=== PATIENT | male | born 1960 | race Caucasian/White ===

== ENCOUNTER 2017-04-14 13:08 | Inpatient (IN) | payer OTHER ==
[~2017-04-14] VITALS: Ht 180.3 cm; Wt 85.5 kg
[2017-04-14] VITALS (9 sets, daily range): BP systolic 129–174; BP diastolic 77–87; PULSE 71–98; RESP 16–24; TEMP 97.7–99; O2SAT 94–100
[~2017-04-14 13:08] MED LIST: PERC5TAB12 PO; WHEEMIS3
[2017-04-14] MEDS ORDERED: SODIUM CHLOR 0.9% 1000 ML INJ 1,000 ML IV SCH (13:25)
[2017-04-14] MEDS ORDERED: ONDANSETRON HCL 4 MG/2 ML VIAL IVP ONE (13:30)
[2017-04-14] MEDS ORDERED: MORPHINE SULFATE 4 MG/ML INJ IV PUSH ONE ×2 (13:30→16:00)
[2017-04-14] MEDS ORDERED: KETOROLAC TROMETHAMINE 30 MG/ML (IVP) VIAL IVP ONE (13:30)
[2017-04-14] MEDS ORDERED: SODIUM CHLORIDE 0.9% FLUSH 10 ML FLUSH IV FLUSH PRN ×3 (13:30→19:15)
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
[2017-04-14 14:56] LABS: AUTOMATED NEUTROPHIL # 17.9 TH/MM3 (1.8-7.7); BASOPHIL % 0.1 % (0.0-2.0); HEMATOCRIT 43.3 % (39.0-51.0); HEMO FLAGS DIFF FINAL; LYMPH % 4.4 % (9.0-44.0); LYMPHOCYTE # 0.9 TH/MM3 (1.0-4.8); MEAN CELL VOLUME 87.6 FL (80.0-100.0); MEAN CORPUSCULAR HEMOGLOBIN 30.1 PG (27.0-34.0); MEAN CORPUSCULAR HGB CONC 34.4 % (32.0-36.0); MONO % 5.6 % (0.0-8.0); NEUT % 89.9 % (16.0-70.0); PLATELET COUNT 239 TH/MM3 (150-450); RED BLOOD COUNT 4.95 MIL/MM3 (4.50-5.90); RED CELL DISTRIBUTION WIDTH 13.6 % (11.6-17.2); WHITE BLOOD COUNT 19.9 TH/MM3 (4.0-11.0)
[2017-04-14 15:14] LABS: ALT (GPT) 33 U/L (12-78)
[2017-04-14 15:15] LABS: ALKALINE PHOSPHATASE 84 U/L (45-117); TOTAL BILIRUBIN ADULT 0.3 MG/DL (0.2-1.0)
[2017-04-14 15:19] LABS: ANION GAP 9 MEQ/L (5-15); AST (GOT) 32 U/L (15-37); BICARBONATE 24.3 MEQ/L (21.0-32.0); BLOOD UREA NITROGEN 15 MG/DL (7-18); CHLORIDE 102 MEQ/L (98-107); GLOMERULAR FILTRATION RATE 61 ML/MIN (>89); SODIUM (NA) 135 MEQ/L (136-145)
[2017-04-14 15:20] LABS: POTASSIUM 3.9 MEQ/L (3.5-5.1)
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
[2017-04-14] MEDS ORDERED: IOHEXOL 350 MG/ML 10 ML VIAL (for RAD DIAG) IVCONTRAST ONE (17:40)
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
[2017-04-14] MEDS ORDERED: MAGNESIUM HYDROXIDE SUSP 30 ML CUP PO PRN ×2 (18:30→19:15)
[2017-04-14] MEDS ORDERED: HYDROmorphone HCL PF 0.5 MG/0.5 ML SYRINGE IV PUSH PRN (18:30)
[2017-04-14] MEDS ORDERED: LACTULOSE SYRUP 20 GM/30 ML CUP PO PRN (18:30)
[2017-04-14] MEDS ORDERED: HYDROmorphone HCL PF 1 MG/ML VIAL IV PUSH PRN (18:30)
[2017-04-14] MEDS ORDERED: CHLORHEXIDINE GLUCONATE 2 % 1 PACK (2 CLOTHS) TOP PRN (18:30)
[2017-04-14] MEDS ORDERED: BISACODYL 10 MG SUPP RECTAL PRN (18:30)
[2017-04-14] MEDS ORDERED: SENNOSIDES 8.6 MG TAB PO PRN (18:30)
[2017-04-14] MEDS ORDERED: MISCELLANEOUS NURSING INFORMATION XX SCH (18:30)
[2017-04-14] MEDS ORDERED: ONDANSETRON HCL 4 MG/2 ML VIAL IV PUSH PRN (18:30)
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
[2017-04-14] MEDS ORDERED: ALUMINUM/MAGNESIUM/SIMETH 30 ML CUP PO PRN (19:15)
[2017-04-14] MEDS ORDERED: cloNIDine HCL 0.1 MG TAB PO PRN (19:15)
[2017-04-14] MEDS ORDERED: ZOLPIDEM TARTRATE 5 MG TAB PO PRN (19:15)
[2017-04-14] MEDS ORDERED: ACETAMINOPHEN/HYDROcodone 325 MG/10 MG TAB PO PRN (19:15)
[2017-04-14] MEDS ORDERED: ACETAMINOPHEN 325 MG TAB PO PRN (19:15)
[2017-04-14] MEDS ORDERED: CYCLOBENZAPRINE HCL 10 MG TAB PO PRN (19:15)
[2017-04-14] MEDS ORDERED: RESP: ALBUTEROL 2.5 MG/3 ML NEB (PRN) NEB (19:15)
[2017-04-14] MEDS ORDERED: PROMETHAZINE INJ 25 MG/ML VIAL IM PRN (19:15)
[2017-04-14] MEDS: SODIUM CHLORIDE 0.9% FLUSH 10 ML FLUSH IV FLUSH SCH (20:00)
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
[2017-04-14] MEDS ORDERED: DOCUSATE SODIUM 100 MG CAP PO SCH (21:00)
[2017-04-14] MEDS ORDERED: SODIUM CHLORIDE 0.9% FLUSH 10 ML FLUSH IV FLUSH SCH (21:00)
[2017-04-14] MEDS ORDERED: DOCUSATE SODIUM 50 MG/SENNA 8.6 MG TAB PO SCH (21:00)
[2017-04-14] MEDS: ACETAMINOPHEN/HYDROcodone 325 MG/10 MG TAB PO PRN (21:09)
--- NOTE | 2017-04-14 23:22 | EKG ---
Date Performed: 04/14/2017 Time Performed: 22:10:06 PTAGE: 56 years EKG: Sinus rhythm NONSPECIFIC T-WAVE ABNORMALITY BORDERLINE ECG NO PREVIOUS TRACING DOCTOR: Yazan Hunter Interpretating Date/Time 04/14/2017 23:20:57
[2017-04-15] VITALS (12 sets, daily range): BP systolic 116–136; BP diastolic 72–85; PULSE 64–112; RESP 14–17; TEMP 98.4–99; O2SAT 93–98
[2017-04-15] MEDS: ACETAMINOPHEN/HYDROcodone 325 MG/10 MG TAB PO PRN ×2 (03:18→08:51)
[2017-04-15 03:48] LABS: BLOOD, URINE NEG (NEG); COMMENT (UR) CULT NOT INDICATED; CULTURE IF INDICATED CULT NOT INDICATED; GLUCOSE,URINE NEG (NEG); KETONE, URINE NEG (NEG); NITRITE,URINE NEG (NEG); PH, URINE 6.5 (5.0-8.5); URINE COLOR YELLOW (YELLW/STRAW)
[2017-04-15] MEDS: CHLORHEXIDINE GLUCONATE 2 % 1 PACK (2 CLOTHS) TOP SCH ×2 (04:00→21:31)
[2017-04-15 06:26] LABS: AUTOMATED NEUTROPHIL # 6.3 TH/MM3 (1.8-7.7); BASOPHIL % 0.3 % (0.0-2.0); EOSINOPHIL # 0.1 TH/MM3 (0-0.4); HEMATOCRIT 38.8 % (39.0-51.0); HEMO FLAGS DIFF FINAL; LYMPH % 17.1 % (9.0-44.0); LYMPHOCYTE # 1.5 TH/MM3 (1.0-4.8); MEAN CELL VOLUME 86.6 FL (80.0-100.0); MEAN CORPUSCULAR HEMOGLOBIN 29.6 PG (27.0-34.0); MEAN CORPUSCULAR HGB CONC 34.2 % (32.0-36.0); MONO % 8.9 % (0.0-8.0); NEUT % 72.7 % (16.0-70.0); PLATELET COUNT 186 TH/MM3 (150-450); RED BLOOD COUNT 4.48 MIL/MM3 (4.50-5.90); WHITE BLOOD COUNT 8.7 TH/MM3 (4.0-11.0)
[2017-04-15 06:35] LABS: APTT (PATIENT) 27.3 SEC (24.3-30.1); PROTHROMBIN TIME - PATIENT 10.8 SEC (9.8-11.6)
[2017-04-15 06:54] LABS: BICARBONATE 26.2 MEQ/L (21.0-32.0); POTASSIUM 3.8 MEQ/L (3.5-5.1)
[2017-04-15 07:23] LABS: PROTHROMBIN TIME - PATIENT 10.8 SEC (9.8-11.6)
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
[2017-04-15] MEDS ORDERED: DEXTROSE 50% IN WATER 50 ML VIAL(D50) IV PUSH PRN (08:15)
[2017-04-15] MEDS ORDERED: LACTULOSE SYRUP 20 GM/30 ML CUP PO PRN (08:15)
[2017-04-15] MEDS ORDERED: MORPHINE SULFATE 4 MG/ML INJ IV PUSH PRN (08:15)
[2017-04-15] MEDS ORDERED: GLUCAGON 1 MG/ML VIAL OTHER PRN (08:15)
[2017-04-15] MEDS: LIDOCAINE HCL 5% PATCH T-DERMAL SCH (08:49)
[2017-04-15] MEDS: PANTOPRAZOLE SOD 40 MG DELAYED RELEASE TAB PO SCH (08:50)
[2017-04-15] MEDS: METHOCARBAMOL 500 MG TAB PO SCH ×3 (08:50→21:30)
[2017-04-15] MEDS: DOCUSATE SODIUM 50 MG/SENNA 8.6 MG TAB PO SCH ×2 (08:50→21:30)
[2017-04-15] MEDS: SODIUM CHLORIDE 0.9% FLUSH 10 ML FLUSH IV FLUSH SCH ×2 (08:51→21:00)
[2017-04-15] MEDS: POLYETHYLENE GLYCOL 17 GM PKG PO SCH (08:51)
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
[2017-04-15] MEDS ORDERED: LIDOCAINE HCL 2% 50 ML VIAL ONE (11:50)
[2017-04-15] MEDS ORDERED: BUPIVACAINE HCL PF 0.5% 30 ML VIAL ONE (11:51)
[2017-04-15] MEDS ORDERED: BACITRACIN TOP OINT 15 GM TUBE ONE (11:51)
[2017-04-15] MEDS ORDERED: NEOMYCIN/POLYMYXIN 1 ML G.U. IRRIGANT ONE (11:58)
[2017-04-15] MEDS ORDERED: DEXAMETHASONE SOD PHOS 4 MG/ML VIAL IV ONE (12:00)
[2017-04-15] MEDS: INSULIN NovoLIN REGULAR SUPPLEMENTAL SCALE SQ SCH ×3 (12:00→21:30)
[2017-04-15] MEDS ORDERED: NEOSTIGMINE 3 MG/3 ML SYR IV ONE (12:00)
[2017-04-15] MEDS ORDERED: LACTATED RINGER'S 1000 ML INJ 1,000 ML IV ONE (12:00)
[2017-04-15] MEDS ORDERED: ROCURONIUM INJ 50 MG/5 ML SYRINGE IV PUSH ONE (12:00)
[2017-04-15] MEDS ORDERED: GLYCOPYRROLATE 1 MG/5 ML SYRINGE IV PUSH ONE (12:00)
[2017-04-15] MEDS ORDERED: MIDAZOLAM HCL 2 MG/2 ML VIAL IV ONE (12:00)
[2017-04-15] MEDS ORDERED: PHENYLEPH/NS 1000 MCG/10 ML SYR IV ONE (12:00)
[2017-04-15] MEDS ORDERED: ePHEDrine/NS 25 MG/5 ML SYR IV ONE (12:00)
[2017-04-15] MEDS ORDERED: ONDANSETRON HCL 4 MG/2 ML VIAL IV PUSH ONE (12:00)
[2017-04-15] MEDS ORDERED: LIDOCAINE HCL 1% PF 5 ML SYRINGE OTHER ONE (12:00)
[2017-04-15] MEDS ORDERED: PROPOFOL 200 MG/20 ML AMP IV ONE (12:00)
--- NOTE | 2017-04-15 12:31 | RADRPT ---
EXAM DATE/TIME: 04/15/2017 11:43 [facility] COMPARISON: CT LUMBAR SPINE W/O CONTRAST, April 14, 2017, 15:24. INDICATIONS : Fracture. MEDICAL HISTORY : Diabetes mellitus type 2. SURGICAL HISTORY : None. ENCOUNTER: Initial ACUITY: 1 day PAIN SCORE: 7/10 LOCATION: [facility] TECHNIQUE: Multiplanar multisequence MRI of the lumbar spine was performed without contrast. FINDINGS: The most caudal appearing lumbar vertebra is numbered as L5. The configuration of the burst fracture of the superior one half of L2 with anteropulsion and retropulsion fragments is very similar to the CT. There is T1 and T2 prolongation in the fragments. The retropulsed fragment narrows the AP dimen laura of the thecal sac to 7 mm and is broad-based in the bony spinal canal. The conus is at the leve l of T12. No signal abnormalities seen in the remainder of the lumbar vertebral bodies and the align ment of the other lumbar vertebral bodies is maintained. His ulna marked distention of the urinary b ladder, partially included in the [id number]. T12-L1: The thecal sac has a normal diameter. No evidence of disc bulge or protrusion. The neural foramina are patent bilaterally. L1-L2: The thecal sac has a normal diameter. No evidence of disc bulge or protrusion. The neural foramina are patent bilaterally. L2-L3: Decrease in AP dimension of the thecal sac at the level of the retropulsed fragments a 7 mm. The jay ral foramen remain patent bilaterally. No signal abnormality seen in the pedicles. L3-L4: The thecal sac has a normal diameter. No evidence of disc bulge or protrusion. The neural foramina are patent bilaterally. L4-L5: The thecal sac has a normal diameter. No evidence of disc bulge or protrusion. The neural foramina are patent bilaterally. L5-S1: The thecal sac has a normal diameter. No evidence of disc bulge or protrusion. The neural foramina are patent bilaterally. CONCLUSION: 1. Thecal sac is narrowed to 7 mm AP dimension at the level of the retropulsed L2 fracture. No later al extension and lateral neural impingement. 2. Probable neurogenic bladder. Kishor Ford MD on April 15, 2017 at 12:22 Board Certified Radiologist. This report was verified electronically.
[2017-04-15] MEDS ORDERED: ceFAZolin 2 GM PREMIX 50 ML ONE (13:46)
[2017-04-15] MEDS ORDERED: DO NOT ADM ANY ANTICOAGULANT DRUGS PRN (14:34)
--- NOTE | 2017-04-15 14:35 | PD.OP ---
Operative Report Preoperative Diagnosis: (1) pilon fracture middle phalanx left little finger Postoperative Diagnosis: (1) pilon fracture middle phalanx left little finger Procedure: closed reduction and dynamic external fixator application middle phalanx left little finger Anesthesia: general Surgeon: Ty Manjarrez Local Operator(s): ana maria Operation and Findings: comminuted displaced pilon fracture middle phalanx base left little finger Ty Manjarrez MD Apr 15, 2017 14:35
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
[2017-04-15] MEDS: SODIUM CHLOR 0.9% 1000 ML INJ 1,000 ML IV SCH ×2 (16:21→21:31)
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
[2017-04-15] MEDS: REMOVE OLD LIDOCAINE PATCH T-DERMAL SCH (21:00)
[2017-04-15] MEDS: QUEtiapine FUMARATE 25 MG TAB PO SCH (21:30)
[2017-04-16] VITALS (12 sets, daily range): BP systolic 119–155; BP diastolic 78–95; PULSE 69–84; RESP 16–22; TEMP 98.3–98.8; O2SAT 97–99
[2017-04-16] MEDS: METHOCARBAMOL 500 MG TAB PO SCH ×3 (05:43→22:00)
[2017-04-16 05:46] LABS: BASOPHIL % 0.2 % (0.0-2.0); HEMATOCRIT 40.3 % (39.0-51.0); HEMO FLAGS DIFF FINAL; LYMPH % 8.3 % (9.0-44.0); LYMPHOCYTE # 0.9 TH/MM3 (1.0-4.8); MEAN CELL VOLUME 87.7 FL (80.0-100.0); MEAN CORPUSCULAR HEMOGLOBIN 29.6 PG (27.0-34.0); MEAN CORPUSCULAR HGB CONC 33.7 % (32.0-36.0); MONO % 6.4 % (0.0-8.0); NEUT % 85.1 % (16.0-70.0); PLATELET COUNT 200 TH/MM3 (150-450); RED CELL DISTRIBUTION WIDTH 13.5 % (11.6-17.2); WHITE BLOOD COUNT 10.6 TH/MM3 (4.0-11.0)
--- NOTE | 2017-04-16 05:55 | RADRPT ---
EXAM DATE/TIME: 04/16/2017 04:53 [facility] COMPARISON: No previous studies available for comparison. INDICATIONS : Shortness of breath. MEDICAL HISTORY : Diabetes mellitus type II. SURGICAL HISTORY : None. ENCOUNTER: Subsequent ACUITY: 2 days PAIN SCORE: 0/10 LOCATION: Bilateral chest FINDINGS: The heart size is normal. There is minimal linear density seen at the right base. Left lung is clear. No effusion is seen. CONCLUSION: Minimal linear atelectasis or consolidation seen at the right base. Ciro Stearns MD on April 16, 2017 at 5:53 Board Certified Radiologist. This report was verified electronically.
[2017-04-16] MEDS: SODIUM CHLOR 0.9% 1000 ML INJ 1,000 ML IV SCH (07:15)
[2017-04-16] MEDS: INSULIN NovoLIN REGULAR SUPPLEMENTAL SCALE SQ SCH ×4 (08:00→21:00)
[2017-04-16] MEDS: PANTOPRAZOLE SOD 40 MG DELAYED RELEASE TAB PO SCH (08:48)
[2017-04-16] MEDS: DOCUSATE SODIUM 50 MG/SENNA 8.6 MG TAB PO SCH ×2 (08:48→20:34)
[2017-04-16] MEDS: POLYETHYLENE GLYCOL 17 GM PKG PO SCH (08:49)
[2017-04-16] MEDS: LIDOCAINE HCL 5% PATCH T-DERMAL SCH (08:49)
[2017-04-16] MEDS: SODIUM CHLORIDE 0.9% FLUSH 10 ML FLUSH IV FLUSH SCH ×2 (08:49→21:00)
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
[2017-04-16] MEDS ORDERED: QUEtiapine FUMARATE 100 MG TAB PO SCH (10:00)
[2017-04-16] MEDS ORDERED: HALOPERIDOL LACTATE 5 MG/ML AMP IV PUSH SCH (12:00)
[2017-04-16] MEDS ORDERED: hydrALAZINE HCL 20 MG/ML VIAL IV PUSH PRN (13:00)
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
[2017-04-16] MEDS: QUEtiapine FUMARATE 25 MG TAB PO SCH (20:34)
[2017-04-16] MEDS: ACETAMINOPHEN/HYDROcodone 325 MG/10 MG TAB PO PRN (20:35)
[2017-04-16] MEDS: REMOVE OLD LIDOCAINE PATCH T-DERMAL SCH (21:00)
[2017-04-17] VITALS (10 sets, daily range): BP systolic 107–124; BP diastolic 63–79; PULSE 65–84; RESP 14–19; TEMP 98–98.7; O2SAT 95–99
[2017-04-17] MEDS: CHLORHEXIDINE GLUCONATE 2 % 1 PACK (2 CLOTHS) TOP SCH (03:59)
[2017-04-17] MEDS: METHOCARBAMOL 500 MG TAB PO SCH ×3 (05:41→22:59)
[2017-04-17] MEDS ORDERED: VANCOMYCIN HCL 1000 MG VIAL ONE ×3 (06:54→06:56)
[2017-04-17] MEDS ORDERED: THROMBIN (TOPICAL) 5,000 UNIT VIAL ONE (06:54)
[2017-04-17] MEDS ORDERED: BUPIVACAINE/EPINEPHRINE 0.5% PF 30 ML VIAL ONE (06:54)
[2017-04-17] MEDS ORDERED: GELFOAM SIZE 100 ONE (06:55)
[2017-04-17] MEDS ORDERED: PROPOFOL 500 MG/50 ML INJ 0 ML ONE (07:44)
[2017-04-17] MEDS ORDERED: ARTIFICIAL TEARS OPTH OINT 3.5 APPLIC/3.5 GM TUBO ONE (07:44)
[2017-04-17] MEDS ORDERED: ACETAMINOPHEN 1000 MG/100 ML 100 ML IV ONE (07:44)
[2017-04-17] MEDS: INSULIN NovoLIN REGULAR SUPPLEMENTAL SCALE SQ SCH ×4 (08:00→21:00)
[2017-04-17] MEDS: POLYETHYLENE GLYCOL 17 GM PKG PO SCH (09:00)
[2017-04-17] MEDS: LIDOCAINE HCL 5% PATCH T-DERMAL SCH (09:00)
[2017-04-17] MEDS: DOCUSATE SODIUM 50 MG/SENNA 8.6 MG TAB PO SCH ×2 (09:00→21:17)
[2017-04-17] MEDS: PANTOPRAZOLE SOD 40 MG DELAYED RELEASE TAB PO SCH (09:00)
[2017-04-17] MEDS: SODIUM CHLORIDE 0.9% FLUSH 10 ML FLUSH IV FLUSH SCH ×2 (09:00→21:15)
[2017-04-17] MEDS ORDERED: PROPOFOL 200 MG/20 ML AMP ONE (09:35)
[2017-04-17] MEDS ORDERED: PROPOFOL 500 MG/50 ML INJ 100 ML ONE (11:58)
[2017-04-17 12:00] LABS: BLOOD GAS BASE EXCESS 0.5 mmol/L (-2-2); BLOOD GAS CARBOXYHEMOGLOBIN 1.2 % (0-4); BLOOD GAS HCO3 24 mmol/L (22-26); BLOOD GAS METHEMOGLOBIN 1.2 % (0-2); BLOOD GAS O2 HGB SATURATION 97 % (90-100); BLOOD GAS OXYGEN CONTENT 16.5 Vol % (12.0-20.0); BLOOD GAS PCO2 35 mmHg (38-42); BLOOD GAS PO2 271 mmHg (61-120); BLOOD GAS TOTAL HGB 11.6 G/DL (12.0-16.0); CRITICAL VALUE NO; FIO2 68 %; TEMP CORR TO 98.6
[2017-04-17] MEDS ORDERED: PHENYLEPHRINE HCL 10 MG/ML VIAL IV ONE (12:00)
[2017-04-17] MEDS ORDERED: LIDOCAINE HCL 1% PF 5 ML SYRINGE OTHER ONE (12:00)
[2017-04-17] MEDS ORDERED: NEOSTIGMINE 3 MG/3 ML SYR IV ONE (12:00)
[2017-04-17] MEDS ORDERED: LACTATED RINGER'S 1000 ML INJ 1,000 ML IV ONE (12:00)
[2017-04-17] MEDS ORDERED: ROCURONIUM INJ 50 MG/5 ML SYRINGE IV PUSH ONE (12:00)
[2017-04-17] MEDS ORDERED: PHENYLEPH/NS 1000 MCG/10 ML SYR IV ONE (12:00)
[2017-04-17] MEDS ORDERED: ONDANSETRON HCL 4 MG/2 ML VIAL IV PUSH ONE (12:00)
[2017-04-17] MEDS ORDERED: GLYCOPYRROLATE 1 MG/5 ML SYRINGE IV PUSH ONE (12:00)
[2017-04-17] MEDS ORDERED: PROPOFOL 200 MG/20 ML AMP IV ONE (12:00)
[2017-04-17] MEDS ORDERED: ePHEDrine/NS 25 MG/5 ML SYR IV ONE (12:00)
[2017-04-17] MEDS ORDERED: NORMOSOL R INJ 2,000 ML IV ONE (12:00)
[2017-04-17 12:01] LABS: NUMBER OF ARTERIAL PUNCTURES 1; STAT YES; ULNAR PULSE PRESENT
[2017-04-17 12:04] LABS: HEMATOCRIT 32.8 % (39.0-51.0); REVIEW FLAG FINAL
[2017-04-17] MEDS ORDERED: MORPHINE SULFATE 4 MG/ML INJ IV PUSH PRN (14:00)
[2017-04-17] MEDS ORDERED: DO NOT ADM ANY ANTICOAGULANT DRUGS PRN (14:34)
--- NOTE | 2017-04-17 14:47 | RADRPT ---
EXAM DATE/TIME: 04/17/2017 08:38 [facility] COMPARISON: CT LUMBAR SPINE W/O CONTRAST, April 14, 2017, 15:24. INDICATIONS : Post-op T12 to L4 posterior thoracolumbar fusion. MEDICAL HISTORY : None. SURGICAL HISTORY : None. ENCOUNTER: Subsequent ACUITY: 4 - 6 days PAIN SCORE: Non-responsive. LOCATION: Thoracolumbar spine. FINDINGS: Intraoperative OEC spot images of the thoracolumbar spine show bilateral transpedicular posterior fix ation from T12-L4, excluding L2 which shows a burst fracture of the superior endplate of the same. Ho rdware all appears to be intact and appropriately positioned. TONE type drain is identified in the surg ical bed. CONCLUSION: Posterior fixation at multiple levels securing the L2 burst fracture as detailed above. Nickolas Blood MD on April 17, 2017 at 14:42 Board Certified Radiologist. This report was verified electronically.
[2017-04-17] MEDS ORDERED: *morphine SULFATE 8 MG/ML PERIprocedure ONLY ONE (14:54)
[2017-04-17] MEDS ORDERED: DIMETHICONE/OXYBENZONE/PADMIATE LIP BALM 4.25 GM TOPICAL ONE (15:50)
[2017-04-17 15:58] LABS: AUTOMATED NEUTROPHIL # 7.7 TH/MM3 (1.8-7.7); BASOPHIL % 0.3 % (0.0-2.0); EOSINOPHIL # 0.1 TH/MM3 (0-0.4); EOSINOPHIL % 1.1 % (0.0-4.0); HEMATOCRIT 30.9 % (39.0-51.0); HEMO FLAGS DIFF FINAL; LYMPHOCYTE # 1.5 TH/MM3 (1.0-4.8); MEAN CELL VOLUME 87.9 FL (80.0-100.0); MEAN CORPUSCULAR HEMOGLOBIN 30.4 PG (27.0-34.0); MEAN CORPUSCULAR HGB CONC 34.6 % (32.0-36.0); MONO % 6.9 % (0.0-8.0); NEUT % 76.7 % (16.0-70.0); PLATELET COUNT 160 TH/MM3 (150-450); RED BLOOD COUNT 3.51 MIL/MM3 (4.50-5.90); RED CELL DISTRIBUTION WIDTH 13.6 % (11.6-17.2)
[2017-04-17] MEDS: NS + KCL 20 MEQ INJ 1,000 ML IV SCH (16:20)
[2017-04-17 16:22] LABS: BICARBONATE 26.7 MEQ/L (21.0-32.0); POTASSIUM 3.6 MEQ/L (3.5-5.1)
[2017-04-17 16:46] LABS: CALCIUM-PROTEIN CORRECTED 8.3 MG/DL (8.5-10.1)
--- NOTE | 2017-04-17 17:16 | RADRPT ---
EXAM DATE/TIME: 04/17/2017 16:50 [facility] COMPARISON: No previous studies available for comparison. INDICATIONS : Left arm fracture. MEDICAL HISTORY : Diabetes mellitus type II. SURGICAL HISTORY : None. ENCOUNTER: Initial ACUITY: 3 days PAIN SCORE: 5/10 LOCATION: Left forearm. FINDINGS: There is a minimally angulated fracture involving the distal left ulna in the distal diaphyseal regio n. Reduction in cast appears satisfactory. The radius is intact. CONCLUSION: Satisfactory appearance of casted distal ulnar fracture with minimal residual angulation Ciro Smith MD on April 17, 2017 at 17:13 Board Certified Radiologist. This report was verified electronically.
[2017-04-17] MEDS: ACETAMINOPHEN/HYDROcodone 325 MG/10 MG TAB PO PRN (17:18)
[2017-04-17] MEDS: MENTHOL LOZENGE BUCCAL PRN (17:19)
--- NOTE | 2017-04-17 17:50 | PD.OP ---
Operative Report Date of Surgery: Apr 17, 2017 Preoperative Diagnosis: Lumbar L2 vertebral body burst fracture with severe spinal stenosis Postoperative Diagnosis: Same Procedure: Lumbar L2 transpedicular partial corpectomy; posterolateral T12, L1, L2, L3 and L4 fusion. T12-L2 pedicle screw fixation; L1, L2, L3 decompressive laminectomies; left iliac crest autograft harvest; microsurgical technique Anesthesia: Gen. endotracheal by Mello mccormack Surgeon: Irvin Baltazar M.D. Literacy Consultant(s): Kelsie Cazares Operation and Findings: The procedure along with the risks and benefits involved were discussed with the patient including the option of nonsurgical management. He requested that we proceed with surgery and informed consent was obtained. Following initiation of a general endotracheal anesthesia patient a Todd catheter placed on the sequential compression devices and was log rolled on a Wyatt table on chest rolls in the prone position and all pressure points adequately padded. The posterior thoracic lumbar and left iliac crest area was then shaved and prepped with alcohol along with ChloraPrep and sterilely draped with Ioban along with the usual sterile draping. Intraoperative fluoroscopy was used for level confirmation an incision in the midline made extending from that T12 to the L4 levels after infiltrating the skin with 0.5% Marcaine with epinephrine solution. The incision was extended down through the fascia and then using the subperiosteal plane the muscle attachments spinous processes and lamina along with the facets were detached from the T11 to L3 levels bilaterally. Self- retaining retractor was used for exposure. We had corrected the kyphosis to some extent with the positioning also. Further dissection was undertaken using microtechnique with microscope magnification. The left L L1, L2 and L3 lamina along with the L2-3 facet the were resected with a drill bit and Kerrison along with the underlying ligamentum flavum and the L2 pedicle drilled out to gain access to the ventral aspect of the retropulsed bone fragments through the posterolateral approach. Epidural venous stasis achieved with bipolar cautery along with Gelfoam and thrombin. No retraction or impingement of the thecal sac was undertaken for resection of the retropulsed the L2 vertebral body ventral fragments and a partial corpectomy undertaken using the pituitaries and curettes along with a right angle impactors to decompress the spinal canal ventrally. Subsequently pedicle screw fixation was undertaken using [place] spine screws with the entry point ejection of the transverse process and facet at the T12 and L1 levels as well as L3 and L4 levels bilaterally. AP and lateral fluoroscopy guidance was used to and subsequently tap and screw placement bilaterally extending from T12 to the L4 levels which were then connected with the rods and locked in place with caps. I then decorticated the posterior lateral remnants of the laminae and facet lumbar transverse processes on the right side extending from T12 to L4 levels with a drill bit for posterolateral fusion. Incision overlying the left iliac crest was then and made after infiltrating the skin with 0.5% Marcaine with epinephrine physician extending down through the fascia and the musculature of the crest were detached. Cortical and cancellous bone harvested using gouges and hemostasis achieved with Gelfoam and thrombin. The fascia was then closed with 2-0 Vicryl interrupted sutures and then 3-0 Vicryl subcuticular sutures also placed in an interrupted fashion and final skin closure was with jossy. The iliac crest autograft bone along with the local autograft bone from the laminectomy and partial corpectomy as well as demineralized bone matrix was then packed overlying the decorticated the posterior lateral elements extending from the T11 to the L3 level. A TONE 10 mm drain was also placed in the muscular layer which is then tunneled under the skin and secured at separate exit site and connected to a suction bulb. The area was copiously irrigated with vancomycin solution. AP and lateral fluoroscopy confirmed good placement of the construct as well as caodaism of the spinal alignment. The muscle and fascia was then approximated using 2-0 Vicryl interrupted stitches and 3-0 Vicryl subcuticular interrupted stitches were also placed with final skin closure using jossy. Sterile dressings were then applied and he was then log roll supine position and extubated and taken recovery room. There were no intraoperative complications and all sponge and needle count was correct at the end the procedure. Estimated blood loss about 200 cc. Intraoperative neurologic monitoring was also undertaken which remained stable throughout the surgery including individual pedicle screw stimulation with no nerve root irritation noted. Irvin Baltazar MD Apr 17, 2017 17:50
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
[2017-04-17] MEDS: REMOVE OLD LIDOCAINE PATCH T-DERMAL SCH (21:00)
[2017-04-17] MEDS: QUEtiapine FUMARATE 25 MG TAB PO SCH (21:17)
[2017-04-18] VITALS (10 sets, daily range): BP systolic 113–154; BP diastolic 57–90; PULSE 74–106; RESP 18–25; TEMP 98.6–100.2; O2SAT 95–100
[2017-04-18] MEDS: NS + KCL 20 MEQ INJ 1,000 ML IV SCH (02:57)
[2017-04-18] MEDS: MENTHOL LOZENGE BUCCAL PRN ×2 (03:15→07:06)
[2017-04-18] MEDS: CHLORHEXIDINE GLUCONATE 2 % 1 PACK (2 CLOTHS) TOP SCH (04:00)
[2017-04-18 06:02] LABS: AUTOMATED NEUTROPHIL # 7.1 TH/MM3 (1.8-7.7); BASOPHIL % 0.2 % (0.0-2.0); EOSINOPHIL # 0.1 TH/MM3 (0-0.4); EOSINOPHIL % 1.1 % (0.0-4.0); HEMATOCRIT 31.3 % (39.0-51.0); HEMO FLAGS DIFF FINAL; LYMPH % 8.5 % (9.0-44.0); LYMPHOCYTE # 0.7 TH/MM3 (1.0-4.8); MEAN CELL VOLUME 87.8 FL (80.0-100.0); MEAN CORPUSCULAR HGB CONC 34.1 % (32.0-36.0); MONO % 8.3 % (0.0-8.0); NEUT % 81.9 % (16.0-70.0); PLATELET COUNT 190 TH/MM3 (150-450); RED BLOOD COUNT 3.57 MIL/MM3 (4.50-5.90); RED CELL DISTRIBUTION WIDTH 13.7 % (11.6-17.2); WHITE BLOOD COUNT 8.7 TH/MM3 (4.0-11.0)
[2017-04-18 06:27] LABS: BICARBONATE 27.4 MEQ/L (21.0-32.0); POTASSIUM 3.7 MEQ/L (3.5-5.1)
[2017-04-18] MEDS: METHOCARBAMOL 500 MG TAB PO SCH ×3 (06:32→21:01)
[2017-04-18] MEDS: INSULIN NovoLIN REGULAR SUPPLEMENTAL SCALE SQ SCH ×4 (07:47→21:00)
[2017-04-18] MEDS: DOCUSATE SODIUM 50 MG/SENNA 8.6 MG TAB PO SCH ×2 (08:19→21:01)
[2017-04-18] MEDS: POLYETHYLENE GLYCOL 17 GM PKG PO SCH (08:19)
[2017-04-18] MEDS: PANTOPRAZOLE SOD 40 MG DELAYED RELEASE TAB PO SCH (08:19)
[2017-04-18] MEDS: ACETAMINOPHEN/HYDROcodone 325 MG/10 MG TAB PO PRN ×2 (08:20→12:25)
[2017-04-18] MEDS: SODIUM CHLORIDE 0.9% FLUSH 10 ML FLUSH IV FLUSH SCH ×2 (08:33→21:01)
[2017-04-18] MEDS: LIDOCAINE HCL 5% PATCH T-DERMAL SCH (08:33)
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
[2017-04-18] MEDS: REMOVE OLD LIDOCAINE PATCH T-DERMAL SCH (21:00)
[2017-04-18] MEDS: QUEtiapine FUMARATE 25 MG TAB PO SCH (21:01)
[2017-04-19] VITALS (8 sets, daily range): BP systolic 122–146; BP diastolic 75–88; PULSE 85–100; RESP 14–20; TEMP 96.3–99.3; O2SAT 94–99
[2017-04-19 04:07] LABS: AUTOMATED NEUTROPHIL # 8.5 TH/MM3 (1.8-7.7); BASOPHIL % 0.4 % (0.0-2.0); EOSINOPHIL # 0.1 TH/MM3 (0-0.4); EOSINOPHIL % 0.7 % (0.0-4.0); HEMATOCRIT 32.2 % (39.0-51.0); HEMO FLAGS DIFF FINAL; LYMPH % 11.8 % (9.0-44.0); LYMPHOCYTE # 1.3 TH/MM3 (1.0-4.8); MEAN CELL VOLUME 87.1 FL (80.0-100.0); MEAN CORPUSCULAR HEMOGLOBIN 29.2 PG (27.0-34.0); MEAN CORPUSCULAR HGB CONC 33.6 % (32.0-36.0); MONO % 10.2 % (0.0-8.0); NEUT % 76.9 % (16.0-70.0); PLATELET COUNT 209 TH/MM3 (150-450); RED CELL DISTRIBUTION WIDTH 13.4 % (11.6-17.2); WHITE BLOOD COUNT 11.1 TH/MM3 (4.0-11.0)
[2017-04-19 04:38] LABS: BICARBONATE 24.4 MEQ/L (21.0-32.0); POTASSIUM 3.7 MEQ/L (3.5-5.1)
[2017-04-19] MEDS: METHOCARBAMOL 500 MG TAB PO SCH ×3 (06:37→21:37)
[2017-04-19] MEDS: INSULIN NovoLIN REGULAR SUPPLEMENTAL SCALE SQ SCH ×4 (07:38→21:36)
[2017-04-19] MEDS: MAGNESIUM HYDROXIDE SUSP 30 ML CUP PO SCH ×3 (07:45→21:39)
[2017-04-19] MEDS: LACTULOSE SYRUP 20 GM/30 ML CUP PO SCH ×2 (07:45→08:56)
[2017-04-19] MEDS: LIDOCAINE HCL 5% PATCH T-DERMAL SCH (08:34)
[2017-04-19] MEDS: POLYETHYLENE GLYCOL 17 GM PKG PO SCH (08:34)
[2017-04-19] MEDS: SODIUM CHLORIDE 0.9% FLUSH 10 ML FLUSH IV FLUSH SCH ×2 (08:34→21:00)
[2017-04-19] MEDS: DOCUSATE SODIUM 50 MG/SENNA 8.6 MG TAB PO SCH ×2 (08:35→21:38)
[2017-04-19] MEDS: PANTOPRAZOLE SOD 40 MG DELAYED RELEASE TAB PO SCH (08:35)
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
--- NOTE | 2017-04-19 10:18 | PD.ORT.PN ---
Subjective Subjective Remarks Patient resting comfortably this morning. He reports he feels very tired after his spine surgery. Denies new numbness or tingling. Objective Vitals Vital Signs Date Time Temp Pulse Resp B/P (MAP) Pulse Ox O2 Delivery O2 Flow Rate FiO2 04/19/17 08:36 Nasal Cannula 2.00 04/19/17 08:00 99.3 88 20 131/87 (102) 99 04/19/17 07:00 99 Room Air 04/19/17 04:00 100 04/19/17 04:00 97.6 100 20 122/81 (95) 96 04/19/17 02:00 90 04/19/17 00:00 96 04/18/17 22:00 96 04/18/17 20:00 99 Room Air 04/18/17 20:00 99.3 94 19 124/80 (95) 97 04/18/17 20:00 100 Room Air 04/18/17 20:00 94 04/18/17 16:00 98.6 88 22 114/77 (89) 04/18/17 12:00 98.6 106 18 124/89 (101) 100 I/O 04/18/17 04/18/17 04/18/17 04/19/17 04/19/17 04/19/17 07:00 15:00 23:00 07:00 15:00 23:00 Intake Total 1805 ml 360 ml 720 ml 620 ml Output Total 1610 ml 1400 ml 1875 ml 785 ml Balance 195 ml -1040 ml -1155 ml -165 ml Intake Oral 480 ml 360 ml 720 ml 620 ml IV Total 1325 ml Output Urine Total 1500 ml 1400 ml 1875 ml 750 ml Stool Total 0 ml Drainage Total 110 ml 35 ml # Bowel Movements 0 Result Diagram: 04/19/17 0354 04/19/17 0354 Objective Remarks Awake, alert, no acute distress Left upper extremity: Splint in place with pins noted in his fingers. Sensation appears intact over the distal fingers and brisk cap refill. Assessment & Plan Assessment and Plan 56-year-old gentleman with mildly displaced and angulated closed left ulnar shaft fracture, along with L2 burst fracture and left small finger fracture. I reviewed the new x-ray findings demonstrating increased angulation in his left ulnar shaft fracture since Sunday. I discussed he could continue with nonoperative management, however I am concerned that it could continue to angulate and displace. This would put him at increased risk of nonunion or malunion. I did discuss the option of operative intervention in the form of open reduction internal fixation. I did discuss with the patient that I believe this is a good option for him given his fracture has angulated and only 3 days. Risks of surgery including but not limited to: infection, nonunion or malunion, hardware malposition or failure, neurovascular injury, painful retained hardware, stiffness with loss of rotation, and possible other unforeseen consultations were all discussed with the patient. At this time, patient has consented to now proceed with ORIF of his left ulna. Patient is nothing by mouth for surgery today. Keesha Goodson MD Apr 19, 2017 10:18
[2017-04-19] MEDS ORDERED: MIDAZOLAM HCL 2 MG/2 ML VIAL IV ONE (12:00)
[2017-04-19] MEDS ORDERED: LIDOCAINE HCL 1% PF 5 ML SYRINGE OTHER ONE (12:00)
[2017-04-19] MEDS ORDERED: PROPOFOL 200 MG/20 ML AMP IV ONE (12:00)
[2017-04-19] MEDS ORDERED: PHENYLEPH/NS 1000 MCG/10 ML SYR IV ONE (12:00)
[2017-04-19] MEDS ORDERED: ROCURONIUM INJ 50 MG/5 ML SYRINGE IV PUSH ONE (12:00)
[2017-04-19] MEDS ORDERED: VANCOMYCIN HCL 1000 MG VIAL ONE (12:47)
[2017-04-19] MEDS ORDERED: SODIUM CHLOR 0.9% 250 ML INJ 250 ML ONE (12:48)
[2017-04-19] MEDS ORDERED: GENTAMICIN SULFATE 80 MG/2 ML VIAL ONE (12:48)
[2017-04-19] MEDS ORDERED: FAMOTIDINE 20 MG/2 ML VIAL ONE (13:38)
[2017-04-19] MEDS ORDERED: ACETAMINOPHEN 1000 MG/100 ML 100 ML IV ONE (13:39)
[2017-04-19] MEDS ORDERED: BUPIVACAINE HCL PF 0.25% 30 ML VIAL ONE (14:07)
[2017-04-19] MEDS ORDERED: ceFAZolin 2 GM PREMIX 50 ML ONE (14:15)
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
[2017-04-19] MEDS: LACTATED RINGER'S 1000 ML INJ 1,000 ML IV SCH (15:42)
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
[2017-04-19] MEDS ORDERED: SODIUM CHLORIDE 0.9% FLUSH 10 ML FLUSH IV FLUSH PRN (15:45)
--- NOTE | 2017-04-19 15:48 | RADRPT ---
EXAM DATE/TIME: 04/19/2017 15:09 [facility] COMPARISON: FOREARM LEFT (2VWS), April 17, 2017, 16:50. INDICATIONS : Status post open reduction internal fixation of the left forearm fracture. MEDICAL HISTORY : Diabetes mellitus type 2. SURGICAL HISTORY : Fusion, lumbar. Hand surgery. ENCOUNTER: Subsequent ACUITY: 1 week PAIN SCORE: Non-responsive. LOCATION: Left Forearm. FINDINGS: Multiple coned down views of the distal forearm were obtained and demonstrate interval placement of a screw plate fixation device transfixing the distal ulnar fracture. Fracture fragments are in anatomi c alignment. There is mild soft tissue swelling. CONCLUSION: Status post open rigid internal fixation. Travis Ponce MD on April 19, 2017 at 15:44 Board Certified Radiologist. This report was verified electronically.
[2017-04-19] MEDS ORDERED: DO NOT ADM ANY ANTICOAGULANT DRUGS PRN (16:30)
[2017-04-19] MEDS: REMOVE OLD LIDOCAINE PATCH T-DERMAL SCH (21:00)
[2017-04-19] MEDS ORDERED: SODIUM CHLORIDE 0.9% FLUSH 10 ML FLUSH IV FLUSH SCH (21:00)
[2017-04-19] MEDS: ENOXAPARIN SODIUM 30 MG/0.3 ML SYRINGE SQ SCH (21:38)
[2017-04-19] MEDS: QUEtiapine FUMARATE 25 MG TAB PO SCH (21:38)
[2017-04-20] VITALS: BP 127/84; PULSE 90; RESP 18; TEMP 98.5; O2SAT 98
[2017-04-20] MEDS: LACTATED RINGER'S 1000 ML INJ 1,000 ML IV SCH ×3 (01:42→21:42)
[2017-04-20 03:40] VITALS: BP 123/83; PULSE 87; RESP 16; TEMP 99.2; O2SAT 99
[2017-04-20] MEDS: METHOCARBAMOL 500 MG TAB PO SCH ×3 (05:12→22:44)
[2017-04-20] MEDS ORDERED: BISACODYL EC 5 MG TABEC PO ONE (07:15)
[2017-04-20] MEDS ORDERED: BISACODYL 10 MG SUPP RECTAL ONE (07:15)
[2017-04-20 08:00] VITALS: BP 127/81; PULSE 81; RESP 19; TEMP 98.7; O2SAT 99
[2017-04-20] MEDS: INSULIN NovoLIN REGULAR SUPPLEMENTAL SCALE SQ SCH ×4 (08:00→21:00)
[2017-04-20] MEDS: PANTOPRAZOLE SOD 40 MG DELAYED RELEASE TAB PO SCH (08:44)
[2017-04-20] MEDS: DOCUSATE SODIUM 50 MG/SENNA 8.6 MG TAB PO SCH ×2 (08:44→20:28)
[2017-04-20] MEDS: MAGNESIUM HYDROXIDE SUSP 30 ML CUP PO SCH ×2 (08:46→20:28)
[2017-04-20] MEDS: POLYETHYLENE GLYCOL 17 GM PKG PO SCH (08:46)
[2017-04-20] MEDS: SODIUM CHLORIDE 0.9% FLUSH 10 ML FLUSH IV FLUSH SCH ×2 (08:47→20:29)
[2017-04-20] MEDS: LACTULOSE SYRUP 20 GM/30 ML CUP PO SCH (08:47)
[2017-04-20] MEDS: LIDOCAINE HCL 5% PATCH T-DERMAL SCH (08:49)
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
[2017-04-20] MEDS: ENOXAPARIN SODIUM 30 MG/0.3 ML SYRINGE SQ SCH ×2 (11:49→20:28)
[2017-04-20] MEDS: ACETAMINOPHEN/HYDROcodone 325 MG/10 MG TAB PO PRN (11:53)
[2017-04-20 12:00] VITALS: BP 127/74; PULSE 97; RESP 20; TEMP 99.1; O2SAT 94
[2017-04-20 16:00] VITALS: BP 114/71; PULSE 90; RESP 18; TEMP 98.8; O2SAT 94
[2017-04-20 19:00] VITALS: BP 133/78; PULSE 82; RESP 16; TEMP 98; O2SAT 95
[2017-04-20] MEDS: QUEtiapine FUMARATE 25 MG TAB PO SCH (20:28)
[2017-04-20] MEDS: REMOVE OLD LIDOCAINE PATCH T-DERMAL SCH (20:29)
[2017-04-21] VITALS: BP 129/74; PULSE 90; RESP 17; TEMP 98.9; O2SAT 94
[2017-04-21 05:17] LABS: BASOPHIL # 0.1 TH/MM3 (0-0.2); BASOPHIL % 0.6 % (0.0-2.0); EOSINOPHIL # 0.1 TH/MM3 (0-0.4); EOSINOPHIL % 1.3 % (0.0-4.0); HEMATOCRIT 28.5 % (39.0-51.0); HEMO FLAGS DIFF FINAL; LYMPH % 17.7 % (9.0-44.0); LYMPHOCYTE # 1.5 TH/MM3 (1.0-4.8); MEAN CELL VOLUME 87.9 FL (80.0-100.0); MEAN CORPUSCULAR HEMOGLOBIN 30.7 PG (27.0-34.0); MEAN CORPUSCULAR HGB CONC 34.9 % (32.0-36.0); MONO % 11.4 % (0.0-8.0); PLATELET COUNT 272 TH/MM3 (150-450); RED BLOOD COUNT 3.24 MIL/MM3 (4.50-5.90); RED CELL DISTRIBUTION WIDTH 13.5 % (11.6-17.2); WHITE BLOOD COUNT 8.7 TH/MM3 (4.0-11.0)
[2017-04-21 05:38] LABS: BICARBONATE 28.3 MEQ/L (21.0-32.0); POTASSIUM 3.3 MEQ/L (3.5-5.1)
[2017-04-21] MEDS: METHOCARBAMOL 500 MG TAB PO SCH ×2 (06:36→14:31)
[2017-04-21] MEDS: LACTATED RINGER'S 1000 ML INJ 1,000 ML IV SCH (07:42)
[2017-04-21 08:00] VITALS: BP 123/78; PULSE 83; RESP 18; TEMP 98.9; O2SAT 92
[2017-04-21] MEDS: INSULIN NovoLIN REGULAR SUPPLEMENTAL SCALE SQ SCH ×2 (08:00→12:21)
[2017-04-21] MEDS: LACTULOSE SYRUP 20 GM/30 ML CUP PO SCH (09:00)
[2017-04-21] MEDS: DOCUSATE SODIUM 50 MG/SENNA 8.6 MG TAB PO SCH (09:00)
[2017-04-21] MEDS ORDERED: POTASSIUM CHLORIDE 20 MEQ CONTROLLED RELEASE TAB PO ONE (09:00)
[2017-04-21] MEDS: LIDOCAINE HCL 5% PATCH T-DERMAL SCH (09:00)
[2017-04-21] MEDS: POLYETHYLENE GLYCOL 17 GM PKG PO SCH (09:00)
[2017-04-21] MEDS: MAGNESIUM HYDROXIDE SUSP 30 ML CUP PO SCH (09:00)
[2017-04-21] MEDS: ENOXAPARIN SODIUM 30 MG/0.3 ML SYRINGE SQ SCH (10:17)
[2017-04-21] MEDS: PANTOPRAZOLE SOD 40 MG DELAYED RELEASE TAB PO SCH (10:17)
[2017-04-21] MEDS: SODIUM CHLORIDE 0.9% FLUSH 10 ML FLUSH IV FLUSH SCH (10:21)
[2017-04-21] MEDS ORDERED: MAGN30S PO (11:33)
[2017-04-21] MEDS ORDERED: SERO25TA PO (11:33)
[2017-04-21] MEDS ORDERED: HYDR-3583 PO (11:33)
[2017-04-21] MEDS ORDERED: MAG-LIQ PO (11:33)
[2017-04-21] MEDS ORDERED: CLON.1 PO (11:33)
[2017-04-21] MEDS ORDERED: Lactulose Liq PO (11:33)
[2017-04-21] MEDS ORDERED: ENOX30P SQ (11:33)
[2017-04-21] MEDS ORDERED: PANT40TA3 PO (11:33)
[2017-04-21] MEDS ORDERED: POLY17S PO (11:33)
[2017-04-21] MEDS ORDERED: AMBI5TAB PO (11:33)
[2017-04-21] MEDS ORDERED: METH500T3 PO (11:33)
[2017-04-21] MEDS ORDERED: SENN187 PO (11:33)
[2017-04-21] MEDS ORDERED: NOVORP2 SQ (11:33)
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
[2017-04-21] MEDS: ACETAMINOPHEN/HYDROcodone 325 MG/10 MG TAB PO PRN (11:44)
[2017-04-21 12:00] VITALS: BP 127/74; PULSE 81; RESP 18; TEMP 98.6; O2SAT 93
[2017-04-21 12:44] VITALS: RESP 18
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
[2017-04-21] MEDS ORDERED: TAMS5CAP PO (13:40)
[2017-04-21] MEDS ORDERED: TAMSULOSIN HCL 0.4 MG CAP PO SCH (14:30)
== END 2017-04-21 15:46 | DRG 460 ==
LOC: NEPC 13:08 → NEDA 16:42 → N03A 20:46 → N06B 04-19 13:08
PROVIDERS: ADMIT Surgery Trauma Surgery; ATTEND Surgery Trauma Surgery
PROC: 0PSLXZZ Reposition Left Ulna, External Approach (ICD-10-PCS; 2017-04-14)
PROC: 0PSV35Z Reposition Left Finger Phalanx with External Fixation Device, Percutaneous Approach (ICD-10-PCS; 2017-04-15)
PROC: 0SG1071 Fusion of 2 or more Lumbar Vertebral Joints with Autologous Tissue Substitute, Posterior Approach, Posterior Column, Open Approach (ICD-10-PCS; 2017-04-17)
PROC: 0QB30ZZ Excision of Left Pelvic Bone, Open Approach (ICD-10-PCS; 2017-04-17)
PROC: 0RGA071 Fusion of Thoracolumbar Vertebral Joint with Autologous Tissue Substitute, Posterior Approach, Posterior Column, Open Approach (ICD-10-PCS; principal; 2017-04-17 08:04)
PROC: 0PSL04Z Reposition Left Ulna with Internal Fixation Device, Open Approach (ICD-10-PCS; 2017-04-19)
DX: S32.021A Stable burst fracture of second lumbar vertebra, initial encounter for closed fracture (principal); I10 Essential (primary) hypertension; S52.252A Displaced comminuted fracture of shaft of ulna, left arm, initial encounter for closed fracture; M48.061 Spinal stenosis, lumbar region without neurogenic claudication; S62.627A Displaced fracture of middle phalanx of left little finger, initial encounter for closed fracture; E11.9 Type 2 diabetes mellitus without complications; G89.29 Other chronic pain; K59.00 Constipation, unspecified; V27.0XXA Motorcycle driver injured in collision with fixed or stationary object in nontraffic accident, initial encounter; Y92.89 Other specified places as the place of occurrence of the external cause
CPT/HCPCS: 25535; 36600; 71010; 71260; 72070; 72110; 72125; 72131; 72148; 73090; 73130; 74177; 76000; 80048; 80053; 81001; 82805; 82948; 84155; 85014; 85018; 85025; 85610; 85730; 86850; 86900; 86901; 86920; 87641; 93005; 94150; 96361; 96374; 96375; C1713; J0131; J0690; J1100; J1580; J1650; J1885; J2250; J2270; J2370; J2405; J2710; J3010; J3370; J3480; J7030; J7050; J7120; L0200; L0484; Q9967